=== PATIENT | female | born 1940 | race Caucasian/White ===

== ENCOUNTER 2020-07-15 17:59 | Emergency (ER) | payer OTHER ==
--- OUTSIDE RECORDS SUMMARY | 2020-07-15 18:02 | XMS REPORT | Continuity of Care Document ---
:1940 Author Organization [facility] t Address [address] [place] [address] Care Team Providers Name Role Phone Roman Hedrick Attending Clinician Luis Ventura Attending Clinician Doctor Unassigned, Name Attending Clinician Unavailable Singer CERDA Attending Clinician Duke RIVERA Attending Clinician Room, Therapy Tub Attending Clinician Unavailable Gerson RIVERA, K Attending Clinician Finn FORD G Attending Clinician Eleonora LOVING, G Attending Clinician Unavailable Problems This patient has no known problems. Allergies, Adverse Reactions, Alerts This patient has no known allergies or adverse reactions. Medications Ordered Filled Start Stop Current Ordering Indication Dosage Frequency Signature Comments Components Source Medication Medication Date Date Medication? Clinician (SIG) Name Name Amlodipine Amlodipine Yes Na Gilliam TAKE [address] [facility] Besylate Besylate TABLET BY Salma [facility] Plavix Plavix Yes Na Gilliam [address] [facility] Eliquis 5 Eliquis 5 Yes Na Gilliam one [facility] Zantac Zantac Yes Na Gilliam [address] [facility] at bedtime [facility] Tolterodine Tolterodine Yes Na Gilliam TAKE [address] [facility] Tartrate Tartrate TABLET BY Salma kes - [facility] TWICE l [facility] Lipitor Lipitor Yes Na Gilliam [address] [facility] Atenolol Atenolol Yes Na Gilliam 1 TAB(S[facility] Atenolol Atenolol Yes Na Gilliam 1 TAB(S) [facility] ProAir ProAir Yes Na Gilliam [address] [facility] RespiClick RespiClick needed [facility] Trelegy Trelegy Yes Na Iglliam [address] [facility] Ellipta Ellipta [facility] Lipitor Lipitor Yes Na Gilliam [address] [facility] Carvedilol Carvedilol Yes Na Gilliam as [facility] directed [facility] Atorvastati Atorvastati Yes Na Gilliam TAKE [address] [facility] n Calcium n Calcium TABLET BY [facility] Immunizations Ordered Filled Immunization Date Status Comments [facility] e Immunization Name Name Tramaine Redd 2019-02-[address] [facility] Outpatient [facility] Procedures This patient has no known procedures. Encounters Start End Encounter Admission Attending Care Care Encounter Source Date/Time Date/Time Type Type Clinicians Facility Department ID 2020-07-09 2020-07-09 Emergency Ryanne [facility] [id number] 20:11:00 22:54:00 Lizette Hazel [id number] [place] [id number] [place] [id number] 2020-07-09 [facility] [id number] 09:30:00 20:10:00 Mingo Hazel [id number] [place] [id number] [place] [id number] 2020-07-09 2020-07-09 Orders Doctor IBARRA [id number] 00:00:00 00:00:00 Only Unassigned, RADHA [id number] Lorenzo [facility] [id number] [id number] 2020-06-23 2020-06-23 Outpatient [facility] [id number] [facility] 2020-05-03 2020-05-03 Outpatient [facility] [id number] [facility] 2020-05-03 2020-05-03 Outpatient [facility] [id number] [facility] 2020-05-01 2020-05-01 Outpatient [facility] [id number] [facility] 2020-03-18 2020-03-18 Outpatient [facility] [id number] [facility] 2020-01-18 2020-01-18 Outpatient [facility] [id number] [facility] 2019-11-28 2019-11-28 Emergency [facility] [id number] 09:42:35 10:31:00 Alexandru Hazel [id number] [place] [id number] [place] [id number] 2019-10-15 2019-10-15 [facility] [id number] [facility] 10:00:00 10:00:00 Pixafy [facility] Outpat[facility] ent Clinics 2019-10-05 2019-10-05 [facility] Elise Wall [id number] 12:21:00 23:59:00 Encounter Jeff Radha [id number] [place] [id number] [id number] 2019-09-28 2019-09-28 Ancillary Room, Elise [id number] 15:44:03 16:44:03 Visit Dawit Radha [id number] Therapy Tub [place] [id number] [id number] 2019-09-28 2019-09-28 Orders Doctor FRED [id number] 00:00:00 00:00:00 Only Unassigned, RADHA [id number] Lorenzo [place] [id number] 2019-09-23 2019-09-23 Hospital FRED Nieto [id number] 16:55:00 23:59:00 Encounter Raghav GARCIA [id number] [place] [id number] 2019-09-23 2019-09-[address] [facility] [id number] 15:30:52 16:52:00 Saundra Hazel [id number]7.2.686 [place] [id number] 2019-09-23 2019-09-23 Orders Doctor FRED [id number] 00:00:00 00:00:00 Only Unassigned, RADHA [id number] [place] [address].686 [id number] 2019-09-23 2019-09-23 Telephone Aletha IBARRA [id number] 00:00:00 00:00:00 Rhina callahan [id number] [place] [id number] 2019-09-10 2019-09-10 Emergency , [facility] [id number] 12:11:45 13:21:00 Alexandru Hazel [id number] [place] 4.2.7.2.686 [place] [id number] 2019-08-01 2019-08-01 [facility] [id number] [facility] [address] 09:40:00 09:40:00 [place] [employer] [facility] - [facility] Medicine l Medicine Outpati ent Clinics 2019-05-22 2019-05-22 [facility] [id number] [address] 08:40:00 08:40:00 [place] [employer] - [facility] Medicine l Medicine Outpati ent Clinics 2019-04-30 2019-04-30 [facility] [id number] 09:39:00 09:39:00 [place] [employer] [facility] Medicine Outpati ent Clinics 2019-02-21 2019-02-21 [facility] [id number] [address] 14:04:00 14:04:00 [place] [employer] [facility] l Medicine Outpati ent Clinics 2019-02-19 2019-02-19 [facility] [id number] [facility] [address] 08:13:00 08:13:00 [place] [employer] - Drive [facility] l Medicine Outpati ent Clinics 2019-02-19 2019-02-19 [facility] [id number] [facility] [address] 08:00:00 08:00:00 [place] [employer] [facility] l Medicine Outpati ent Clinics 2019-02-05 2019-02-05 [facility] [id number] [facility] 09:00:00 09:00:00 [place] [employer] [facility] Medicine Outpati ent Clinics 2018-12-25 2018-12-25 [facility] [id number] 10:00:00 10:00:00 [place] [employer] - Drive [facility] Medicine Outpati ent Clinics 2018-10-23 2018-10-23 [facility] [id number] [address] 10:20:00 10:20:00 [place] [employer] - Drive [facility] Medicine Outpati ent Clinics 2018-10-05 2018-10-05 [facility] [id number] 20:02:00 20:02:00 [place] [employer] [facility] Medicine Outpati ent Clinics 2018-09-01 2018-09-01 [facility] [id number] 09:24:00 09:24:00 [place] [employer] - [facility] Medicine Outpati ent Clinics 2018-08-22 2018-08-22 [facility] [id number] 09:00:00 09:00:00 [place] [employer] [facility] Medicine Outpati ent Clinics 2018-07-26 2018-07-26 [facility] [id number] 09:30:00 09:30:00 [place] [employer] [facility] Medicine Outpati ent Clinics 2018-05-24 2018-05-24 [facility] [id number] [facility] [address] 10:00:00 10:00:00 [place] [employer] [facility] Medicine Outpati ent Clinics 2018-01-12 2018-01-12 [facility] [id number] [facility] 08:16:00 08:16:00 [place] [employer] [facility] Medicine Outpati ent Clinics 2017-11-25 2017-11-25 [facility] [id number] 09:15:00 09:15:00 t [place] [facility] - [employer] [facility] Medicine Outpati ent Clinics Results This patient has no known results.
--- NOTE | 2020-07-15 22:01 | ER ---
Nurse's Notes [facility] Name: Keila Rayo Age: 79 yrs Sex: Female : 1940 Arrival Date: 07/15/2020 Time: 17:59 Bed Waiting Private MD: Diagnosis: Presentation: 07/15 18:08 Chief complaint: Patient states: SOB for 3 days constant. 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 ll1 Supposed to use O2 at home, but doesn't. Slight dry cough. No fever. Coronavirus screen: Client denies travel out of the [place] in the last 14 days. cough unrelated to allergies, difficulty breathing, shortness of breath, Client presents with at least one sign or symptom that may indicate coronavirus-19. Standard/surgical mask placed on the client. Ebola Screen: Patient denies travel to an Ebola-affected area in the 21 days before illness onset. Initial Sepsis Screen: Does the patient meet any 2 criteria? No. Patient's initial sepsis screen is negative. Does the patient have a suspected source of infection? Yes: Productive cough/pneumonia. Risk Assessment: Do you want to hurt yourself or someone else? Patient reports no desire to harm self or others. Onset of symptoms was July 13, 2020. 18:08 Method Of Arrival: Wheelchair ll1 18:08 Acuity: MARK 3 ll1 Historical: - Allergies: 18:12 No Known Allergies; ll1 - PMHx: 18:12 COPD; Hyperlipidemia; Hypertension; ll1 - PSHx: 18:12 Cholecystectomy; Appendectomy; ll1 - Immunization history:: Client reports receiving the 1st dose of the Covid vaccine, Flu vaccine is up to date. - Social history:: Smoking status: Patient/guardian denies using tobacco, the patient reports quitting approximately 30 years ago. Vital Signs: 18:08 BP 140 / 54; Pulse 68; Resp 18; Temp 97.8; Pulse Ox 98% on R/A; Weight 61.23 kg; Height ll1 5 ft. 4 in. (162.56 cm); Pain 2/10; 18:08 Body Mass Index 23.17 (61.23 kg, 162.56 cm) ll1 ED Course: 17:59 Patient arrived in ED. ds1 18:11 Triage completed. ll1 18:12 Arm band placed on. ll1 Administered Medications: No medications were administered Outcome: 22:00 Patient left the ED. sg Signatures: Jeff Morin RN RN Omayra Caba ds1 Gricel Gallego RN RN ll1
[2020-07-15 22:07] VITALS: BP 140/54; TEMP 97.8; O2SAT 98
== END 2020-07-15 22:00 | disposition left against medical advice (07) ==
LOC: ER 17:59
DX: Z02.9 Encounter for administrative examinations, unspecified (principal)
CPT/HCPCS: 99281